=== PATIENT | male | born 1970 | race Hispanic/Latino ===

== ENCOUNTER 2017-02-10 10:38 | Emergency (ER) | payer BC ==
[2017-02-10] MEDS ORDERED: KETOROLAC TROMETHAMINE 60 MG/2 ML VIAL IM ONE ×2 (11:52→11:54)
[2017-02-10 13:07] VITALS: BP 114/72
--- NOTE | 2017-02-10 15:36 | ERNOTE ---
Upper Extremity HPI - Narrative Date of Service: 02/10/17 - General Extremities Pain Location: 3rd finger: right - over knuckle area Time Seen by Provider: 02/10/17 11:41 Source: patient Exam Limitations: no limitations - Immun/Allergies/Home Medications Immunizations: IMMUNIZATION HX Immunizations Up to Date Yes History of Influenza Vaccine No Hx Pneumococcal Vaccination No Allergies/Adverse Reactions: Allergies Allergy/AdvReac Type Severity Reaction Status Date / Time No Known Allergies Allergy Verified 02/10/17 11:00 Home Medications: HOME MEDICATIONS Lisinopril [Zestril] mg PO DAILY 05/03/13 [Last Taken Unknown] Ibuprofen [Motrin] 800 mg PO TID PRN #60 tab 02/10/17 [Last Taken Unknown] - Pain Score Pain Score #1 Pain Score: 6 - History of Present Illness Narrative: Patient is a 46 year old male who presents to ED with complaints of swelling and tenderness over knuckle area of third digit on right hand. Denies trauma or injury. States has been getting progressively worse last 4-5 weeks. Takes Tramadol and Naprosyn for back pain and states this has not helped his joint pain. 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 Denies fever, chills aches or NVD Occurred: other - 4-5 weeks ago Severity: mild Method of Injury: Reports: unknown Reason for Fall: Reports: other - N/A Loss of Consciousness: Reports: other - N/A Modifying Factors - (Improves): Reports: immobilization, other - has attempted ice, Tramadol and Naprosyn without relief Modifying Factors - (Worsens): Reports: movement Associated Symptoms: Reports: other - pain. Denies: tingling, weakness, numbness distally, loss of feeling Other Injuries: Reports: none Review of Systems - Review of Systems Constitutional: Present: no symptoms reported. Absent: recent illness, fever, chills, diaphoresis, weakness, fatigue, malaise, weight loss EYE: Present: no symptoms reported ENT: Present: no symptoms reported Respiratory: Present: no symptoms reported. Absent: shortness of breath, cough , orthopnea Cardiology: Present: no symptoms reported. Absent: chest pain, palpitations, syncope Gastrointestinal/Abdominal: Present: no symptoms reported Genitourinary: Present: no symptoms reported Musculoskeletal: Present: back pain - chronic, muscle stiffness - 3rd digit , joint pain - 3rd digit Skin: Present: no symptoms reported. Absent: rash, dryness Neurological: Present: no symptoms reported Endocrine: Present: no symptoms reported Hematologic/Lymphatic: Present: no symptoms reported - Patient's Past Medical History Patient History - Medical: No pertinent hx Patient History - Cardiac/Respiratory: Hypertension Patient History - Cancer: No Hx of Cancer Patient History - Surgical Procedures: Back Surgery, Other Patient History - Other: None - Social History Living Situations: home Psych History: No pertinent hx - Immunizations Immunizations Up to Date: Yes Hx Pneumococcal Vaccination: No History of Influenza Vaccine: No Physical Exam - Physical Exam General Appearance: Present: wd/wn, alert, no apparent distress Head Exam: Present: normal inspection, no evidence of injury Eye Exam: Normal inspection: bilateral Ears, Nose, Throat: Present: normal ENT inspection Neck: Present: normal inspection, nontender Respiratory: Present: no respiratory distress, normal breath sounds, no accessory muscle use, chest nontender, lungs clear Cardiovascular/Chest: Present: regular rate, rhythm, no murmur, normal peripheral pulses Gastrointestinal/Abdominal: Present: normal bowel sounds Rectal Exam: Present: deferred Male Genitals Exam: Present: deferred Back Exam: Present: normal inspection, normal range of motion, no CVA tenderness , no vertebral tenderness Extremity Exam: Present: normal except - - tenderness and slightly limited ROM to knuckle on 3rd digit right hand Neurological Exam: Present: alert, oriented, normal mood/affect, no motor/ sensory deficits Skin Exam: Present: normal color, warm/dry Lymphatic Exam: Present: no adenopathy ED Progress - Vital Signs Patient's Vital Signs:: I have reviewed the patient's vital signs. Vital Signs: Vital Signs 02/10/17 02/10/17 02/10/17 10:56 11:25 11:49 Temperature 36.8 C Pulse Rate 106 H 91 91 Respiratory 16 16 Rate Blood Pressure 134/70 106/80 118/76 O2 Sat by Pulse 99 99 Oximetry 02/10/17 02/10/17 02/10/17 12:15 12:27 12:53 Temperature Pulse Rate 82 78 80 Respiratory Rate Blood Pressure 118/80 122/76 114/72 O2 Sat by Pulse 97 98 98 Oximetry - X-Ray X-Ray #1 X-Ray: hand Interpretation: Reviewed by me X-ray Comments: no acute findings, no acute fractures - Progress/Reassessment Chief Complaint: Hand Injury/Pain Progress:: Unchanged Progress Note-Subjective: 02/10/17 15:36 Toradol IM injection did not help per patient report. Agreed to immobilization and will have RN splint hand to help with immobilization Departure Clinical Impression: Joint pain in fingers of right hand - Departure Disposition: Home Follow Up Needed Condition: Good Instructions: Arthritis, Form - Excuse from Work, School, or Physical Activity Additional Instructions: Splint to right hand as reminder to limit movement. Will have you call orthopedic doctor, Dr Stephenson, to make appointment for follow up. Make appointment with primary physician when he returns. Continue to take medications as previously ordered. Will add high dose Ibuprofen 800 mg three times a day to see if that helps with pain. Referrals: Anshu Stephenson MD [Staff Physician] - Lior Jonas DO [Primary Care Provider] - Prescriptions: Ibuprofen [Motrin] 800 mg PO TID PRN #60 tab PRN Reason: Pain
== END 2017-02-10 13:20 | disposition home or self-care (01) ==
LOC: ER 10:38
PROC: 2W3EX1Z Immobilization of Right Hand using Splint (ICD-10-PCS; principal; 2017-02-10)
DX: M25.541 Pain in joints of right hand (principal)